=== PATIENT | male | born 1935 | race Caucasian/White ===

== ENCOUNTER 2023-02-15 19:18 | Inpatient (IN) | payer MEDICARE ==
[~2023-02-15] VITALS: Ht 162.6 cm; Wt 55.5 kg
[2023-02-15 19:52] LABS: HEMATOCRIT 32.4 % (36.7-47.1); MEAN CORPUSCULAR HEMOGLOBIN 29.4 uug (23.8-33.4); MEAN CORPUSCULAR VOLUME 90.1 fL (73.0-96.2); PLATELET COUNT (AUTO) 198 K/uL (152-348)
[2023-02-15 20:02] LABS: CARBON DIOXIDE 25 mmol/L (21-32); CHLORIDE 109 mmol/L (98-107); CREATININE 1.4 mg/dL (0.6-1.3); GLUCOSE 106 mg/dL (74-106); POTASSIUM 3.6 mmol/L (3.5-5.1); UREA NITROGEN, BLOOD 19 mg/dL (7-18)
[2023-02-15] MEDS ORDERED: FINA5TAB11 PO (22:10)
[2023-02-15] MEDS ORDERED: ALFU10TA10 PO (22:10)
[2023-02-15] MEDS ORDERED: SIMV-46 PO (22:10)
[2023-02-15] MEDS ORDERED: CHOL400C5 PO (22:10)
[2023-02-15] MEDS ORDERED: LATA7.5D EACHEYE (22:10)
[2023-02-15] MEDS ORDERED: PRED5DRO24 EACHEYE (22:10)
[2023-02-15] MEDS ORDERED: MIRT7.5T10 PO (22:10)
[2023-02-15] MEDS ORDERED: ASPI81TA31 PO (22:10)
[2023-02-15] MEDS ORDERED: MAGNESIUM HYDROXIDE 30 ML LIQUID UDC PO PRN (23:45)
[2023-02-15] MEDS ORDERED: REMEDY ESSENTIAL ZINC PASTE 113 GM TP PRN (23:45)
[2023-02-15] MEDS ORDERED: ENOXAPARIN SODIUM 40 MG/0.4 ML DISP.SYRIN SQ SCH (23:52)
[2023-02-15] MEDS ORDERED: SENNOSIDES/DOCUSATE SODIUM TABLET PO SCH (23:54)
[2023-02-16 00:30] VITALS: BP 146/64
[2023-02-16] MEDS: LACTULOSE 20 G/30 ML LIQUID UDC PO SCH ×4 (00:46→18:00)
[2023-02-16] MEDS: SORBITOL 70% SOLUTION 30 ML UDC PO SCH ×3 (00:46→17:00)
[2023-02-16] MEDS: IV LACTATED RINGERS SOLUTION 1,000 ML IV PRN ×2 (00:47→19:53)
[2023-02-16] MEDS: ACETAMINOPHEN 325 MG TABLET PO PRN ×2 (01:06→20:09)
[2023-02-16 04:00] VITALS: BP 130/53
[2023-02-16 07:32] LABS: HEMATOCRIT 32.4 % (36.7-47.1); MEAN CORPUSCULAR HEMOGLOBIN 30.1 uug (23.8-33.4); MEAN CORPUSCULAR VOLUME 90.3 fL (73.0-96.2); PLATELET COUNT (AUTO) 214 K/uL (152-348)
[2023-02-16 07:54] LABS: CARBON DIOXIDE 27 mmol/L (21-32); CHLORIDE 108 mmol/L (98-107); CHOLESTEROL 145 mg/dL (<200); CREATININE 1.6 mg/dL (0.6-1.3); GLUCOSE 122 mg/dL (74-106); HDL CHOLESTEROL 68 mg/dL (40-60); MAGNESIUM 2.1 mg/dL (1.8-2.4); PHOSPHOROUS 3.9 mg/dL (2.5-4.9); POTASSIUM 3.6 mmol/L (3.5-5.1); TRIGLYCERIDES 83 MG/DL (30-150); UREA NITROGEN, BLOOD 20 mg/dL (7-18)
[2023-02-16] MEDS ORDERED: FLEET ENEMA 133 ML BOTTLE RC PRN (09:00)
[2023-02-16] MEDS ORDERED: FLEET ENEMA 133 ML BOTTLE RC SCH (09:00)
[2023-02-16] MEDS: ASPIRIN 81 MG TAB.CHEW PO SCH (09:32)
[2023-02-16 09:37] VITALS: BP 135/75
[2023-02-16] MEDS ORDERED: FLEET ENEMA 133 ML BOTTLE RC ONE (10:45)
[2023-02-16 12:22] LABS: *BILIRUBIN,URIN NEGATIVE (NEGATIVE); *CLARITY,URINE CLEAR (CLEAR); *COLOR,URINE YELLOW (YELLOW); *KETONES,URINE NEGATIVE (NEGATIVE); *UROBILINOGEN,URINE 0.2 E.U./dl (NORMAL); LEUKOCYTE ESTERASE ,URINE 2+ (NEGATIVE); NITRITE, URINE NEGATIVE (NEGATIVE); UGLUCOSE NEGATIVE (NEGATIVE)
[2023-02-16 12:28] LABS: *BLOOD, URINE TRACE (NEGATIVE)
[2023-02-16 13:10] LABS: *CREATININE,URINE 68.3 mg/dL (30-125); *URINE TOTAL PROTEIN RANDOM 18.6 mg/dL (<150/24HR)
[2023-02-16 16:00] VITALS: BP 116/60
[2023-02-16] MEDS: CEphaleXIN 500 MG CAPSULE PO SCH ×2 (16:52→22:30)
[2023-02-16] MEDS: ONDANSETRON 4 MG/2 ML VIAL IV PRN (16:52)
[2023-02-16 18:43] LABS: BACTERIA,URINE MODERATE /HPF (NONE SEEN); SQUAMOUS EPITHELIAL CELL,UR NONE SEEN /HPF (NONE SEEN); WBC,URINE 20-50 /HPF (0-3)
[2023-02-16] MEDS: LATANOPROST OPHT DROP 2.5 ML BOTTLE EACHEYE SCH (20:08)
[2023-02-16] MEDS: ALFUZOSIN HCL 10 MG TAB.SR.24H PO SCH (20:09)
[2023-02-16] MEDS: MIRTAZAPINE 15 MG TABLET PO SCH (20:09)
[2023-02-16] MEDS: FINASTERIDE 5 MG TABLET PO SCH (20:09)
[2023-02-16 20:10] VITALS: BP 125/68
[2023-02-16] MEDS: SIMVASTATIN 20 MG TABLET PO SCH (20:11)
[2023-02-16] MEDS: ENOXAPARIN SODIUM 30 MG/0.3 ML DISP.SYRIN SUBCUT SCH (20:30)
[2023-02-16] MEDS ORDERED: FINASTERIDE 5 MG TABLET PO SCH (21:00)
[2023-02-16] MEDS ORDERED: LATANOPROST OPHT DROP 2.5 ML BOTTLE EACHEYE SCH (21:00)
[2023-02-17 04:03] VITALS: BP 112/49
[2023-02-17 06:46] LABS: HEMATOCRIT 27.5 % (36.7-47.1); MEAN CORPUSCULAR HEMOGLOBIN 29.7 uug (23.8-33.4); MEAN CORPUSCULAR VOLUME 90.5 fL (73.0-96.2); PLATELET COUNT (AUTO) 180 K/uL (152-348)
[2023-02-17 07:31] LABS: ALANINE AMINOTRANSFERASE 10 U/L (16-63); ALKALINE PHOSPHATASE 78 U/L (50-136); ASPARTATE AMINOTRANSFERASE 19 U/L (15-37); BILIRUBIN,TOTAL 0.9 mg/dL (0.2-1.0); CARBON DIOXIDE 25 mmol/L (21-32); CHLORIDE 109 mmol/L (98-107); CREATINE KINASE, TOTAL 173 U/L (39-308); CREATININE 1.6 mg/dL (0.6-1.3); GLUCOSE 140 mg/dL (74-106); MAGNESIUM 2.3 mg/dL (1.8-2.4); PHOSPHOROUS 4.4 mg/dL (2.5-4.9); POTASSIUM 3.8 mmol/L (3.5-5.1); TOTAL PROTEIN, SERUM 5.8 g/dL (6.4-8.2); UREA NITROGEN, BLOOD 22 mg/dL (7-18)
[2023-02-17] MEDS ORDERED: prednisoLONE ACET 1% OPHT DROP 5 ML BOTTLE EACHEYE SCH (09:00)
[2023-02-17] MEDS: ONDANSETRON 4 MG/2 ML VIAL IV PRN (09:00)
[2023-02-17] MEDS: ACETAMINOPHEN 325 MG TABLET PO PRN (09:01)
[2023-02-17] MEDS: ASPIRIN 81 MG TAB.CHEW PO SCH (09:01)
[2023-02-17] MEDS: CEphaleXIN 500 MG CAPSULE PO SCH (09:01)
[2023-02-17] MEDS: IV LACTATED RINGERS SOLUTION 1,000 ML IV PRN (10:20)
[2023-02-17 11:48] VITALS: BP 111/45
[2023-02-17] MEDS ORDERED: PIPERACILLIN SODIUM/TAZOBACTAM 3.375 G in IV DEXTROSE 5% 50 ML IV SCH (14:00)
[2023-02-17] MEDS: PIPERACILLIN SODIUM/TAZOBACTAM 3.375 G in IV DEXTROSE 5% 100 ML IV SCH ×2 (14:15→21:23)
[2023-02-17 16:00] VITALS: BP 98/54
[2023-02-17] MEDS: NEOMY/BACITRAC/POLYMI OINT 28.35 GM TUBE TOP SCH (17:38)
[2023-02-17 20:00] VITALS: BP 121/50
[2023-02-17] MEDS: FINASTERIDE 5 MG TABLET PO SCH (20:09)
[2023-02-17] MEDS: MIRTAZAPINE 15 MG TABLET PO SCH (20:09)
[2023-02-17] MEDS: ALFUZOSIN HCL 10 MG TAB.SR.24H PO SCH (20:10)
[2023-02-17] MEDS: SIMVASTATIN 20 MG TABLET PO SCH (20:10)
[2023-02-17] MEDS: LATANOPROST OPHT DROP 2.5 ML BOTTLE EACHEYE SCH (20:10)
[2023-02-17] MEDS: ENOXAPARIN SODIUM 30 MG/0.3 ML DISP.SYRIN SUBCUT SCH (20:10)
[2023-02-18] VITALS (13 sets, daily range): BP systolic 100–131; BP diastolic 46–67
[2023-02-18] MEDS: IV LACTATED RINGERS SOLUTION 1,000 ML IV PRN ×2 (05:00→19:04)
[2023-02-18] MEDS: PIPERACILLIN SODIUM/TAZOBACTAM 3.375 G in IV DEXTROSE 5% 100 ML IV SCH ×3 (05:00→21:37)
[2023-02-18 06:41] LABS: HEMATOCRIT 23.2 % (36.7-47.1); MEAN CORPUSCULAR HEMOGLOBIN 30.3 uug (23.8-33.4); PLATELET COUNT (AUTO) 130 K/uL (152-348)
[2023-02-18 07:18] LABS: CARBON DIOXIDE 26 mmol/L (21-32); CHLORIDE 108 mmol/L (98-107); CREATININE 1.4 mg/dL (0.6-1.3); GLUCOSE 125 mg/dL (74-106); MAGNESIUM 1.9 mg/dL (1.8-2.4); PHOSPHOROUS 2.7 mg/dL (2.5-4.9); POTASSIUM 3.7 mmol/L (3.5-5.1); UREA NITROGEN, BLOOD 24 mg/dL (7-18)
[2023-02-18] MEDS: ASPIRIN 81 MG TAB.CHEW PO SCH (08:12)
[2023-02-18] MEDS: NEOMY/BACITRAC/POLYMI OINT 28.35 GM TUBE TOP SCH (08:16)
[2023-02-18 13:07] LABS: ALBUMIN 2.7 g/dL (2.9-4.4); ALPHA-1-GLOBULIN 0.3 g/dL (0.0-0.4); ALPHA-2-GLOBULIN 0.6 g/dL (0.4-1.0); BETA GLOBULIN 0.7 g/dL (0.7-1.3); GAMMA GLOBULIN 1.3 g/dL (0.4-1.8); GLOBULIN, TOTAL 2.8 g/dL (2.2-3.9); M-SPIKE Not Observed g/dL (Not Observed)
[2023-02-18] MEDS: SIMVASTATIN 20 MG TABLET PO SCH (21:32)
[2023-02-18] MEDS: ALFUZOSIN HCL 10 MG TAB.SR.24H PO SCH (21:32)
[2023-02-18] MEDS: LATANOPROST OPHT DROP 2.5 ML BOTTLE EACHEYE SCH (21:32)
[2023-02-18] MEDS: FINASTERIDE 5 MG TABLET PO SCH (21:32)
[2023-02-18] MEDS: MIRTAZAPINE 15 MG TABLET PO SCH (21:32)
[2023-02-18] MEDS: ENOXAPARIN SODIUM 30 MG/0.3 ML DISP.SYRIN SUBCUT SCH (21:36)
[2023-02-19 04:00] VITALS: BP 140/56
[2023-02-19] MEDS: PIPERACILLIN SODIUM/TAZOBACTAM 3.375 G in IV DEXTROSE 5% 100 ML IV SCH ×2 (05:09→14:17)
[2023-02-19 06:55] LABS: HEMATOCRIT 27.3 % (36.7-47.1); MEAN CORPUSCULAR VOLUME 89.2 fL (73.0-96.2); PLATELET COUNT (AUTO) 129 K/uL (152-348)
[2023-02-19 07:23] LABS: CARBON DIOXIDE 28 mmol/L (21-32); CHLORIDE 105 mmol/L (98-107); CREATININE 1.2 mg/dL (0.6-1.3); GLUCOSE 129 mg/dL (74-106); MAGNESIUM 1.6 mg/dL (1.8-2.4); PHOSPHOROUS 2.3 mg/dL (2.5-4.9); POTASSIUM 3.8 mmol/L (3.5-5.1); UREA NITROGEN, BLOOD 21 mg/dL (7-18)
[2023-02-19] MEDS: NEOMY/BACITRAC/POLYMI OINT 28.35 GM TUBE TOP SCH (08:09)
[2023-02-19] MEDS: ASPIRIN 81 MG TAB.CHEW PO SCH (08:09)
[2023-02-19] MEDS ORDERED: SENN1TAB33 PO (10:48)
[2023-02-19] MEDS ORDERED: LEVO500T90 PO (10:48)
[2023-02-19] MEDS ORDERED: MAGNESIUM OXIDE 400 MG TABLET PO ONE (11:00)
[2023-02-19 11:39] VITALS: BP 151/57
[2023-02-19 15:52] VITALS: BP 140/62
[2023-02-19] MEDS ORDERED: NEUTRA PHOS PACKET PO SCH (16:00)
== END 2023-02-19 16:30 | disposition home health service (06) | DRG 391 ==
LOC: ER 19:20 → MEDSURG3 23:23
PROVIDERS: ADMIT Nurse Practitioner Acute Care; ATTEND Registered Nurse
PROC: 0HQ1XZZ Repair Face Skin, External Approach (ICD-10-PCS; principal; 2023-02-15)
PROC: 30233N1 Transfusion of Nonautologous Red Blood Cells into Peripheral Vein, Percutaneous Approach (ICD-10-PCS; 2023-02-15)
DX: K59.00 Constipation, unspecified (principal); N17.0 Acute kidney failure with tubular necrosis; I48.20 Chronic atrial fibrillation, unspecified; N39.0 Urinary tract infection, site not specified; D62 Acute posthemorrhagic anemia; S01.81XA Laceration without foreign body of other part of head, initial encounter; S01.21XA Laceration without foreign body of nose, initial encounter; W18.30XA Fall on same level, unspecified, initial encounter; Y93.E8 Activity, other personal hygiene; Y92.012 Bathroom of single-family (private) house as the place of occurrence of the external cause; N40.1 Benign prostatic hyperplasia with lower urinary tract symptoms; R33.8 Other retention of urine; E78.5 Hyperlipidemia, unspecified; R94.31 Abnormal electrocardiogram [ECG] [EKG]; G30.9 Alzheimer's disease, unspecified; F02.80 Dementia in other diseases classified elsewhere, unspecified severity, without behavioral disturbance, psychotic disturbance, mood disturbance, and anxiety; S70.211A Abrasion, right hip, initial encounter; Z66 Do not resuscitate; N18.9 Chronic kidney disease, unspecified; Z96.0 Presence of urogenital implants; S09.90XA Unspecified injury of head, initial encounter
CPT/HCPCS: 36415; 70450; 71045; 72125; 73120; 74018; 76770; 83735; 83970; 84100; 84155; 84165; 84300; 84484; 85018; 85025; 86850; 86900; 86901; 86920; 87040; 93005; 97535-GO-CO; A4663; A6209; C1758; G0378; J1650; J2405; J2543; J2650; J7040; J7120; J8499; P9016